=== PATIENT | male | born 1980 | race Two or more races ===

== ENCOUNTER 2022-03-06 18:40 | Emergency (ER) | payer MEDICAID, OTHER ==
[~2022-03-06] VITALS: Ht 170.2 cm; Wt 190.0 kg
[2022-03-06 19:30] VITALS: BP 142/98
== END 2022-03-07 02:23 | disposition left against medical advice (07) ==
LOC: ER 18:40
DX: R10.9 Unspecified abdominal pain (principal); Z53.21 Procedure and treatment not carried out due to patient leaving prior to being seen by health care provider